=== PATIENT | male | born 1960 | race African-American/Black ===

== ENCOUNTER 2023-03-23 12:03 | Outpatient (CLI) | payer OTHER, SELFPAY ==
--- NOTE | ~2023-03-23 | XR_ITS ---
XR knee RT 3V 03/23/2023 12:18 Indication: Right knee pain Procedure: 3 views right knee Comparison: No prior studies for comparison. Findings: There is mild tricompartment osteoarthritis. No significant joint effusion. No foreign bodi es. No fracture or traumatic malalignment. Impression: 1: Mild osteoarthritis of the right knee. Reviewed, dictated and finalized at location L. Impression: 1: Mild osteoarthritis of the right knee.
== END 2023-03-23 12:04 ==
PROVIDERS: PCP Clinical Nurse Specialist; Visit Provider Clinical Nurse Specialist
DX: M17.11 Unilateral primary osteoarthritis, right knee (principal)
CPT/HCPCS: 73562

== ENCOUNTER 2024-04-24 15:29 | Emergency (ER) | payer OTHER, SELFPAY ==
[2024-04-24 15:36] VITALS: BP 119/82; PULSE 131; RESP 16; TEMP 38.7; O2SAT 98
--- NOTE | 2024-04-24 16:21 | ED.URI ---
HPI - URI/Sore Throat General Chief Complaint: Upper Respiratory Infection Stated Complaint: Chills, Positive COVID Test Time Seen by Provider: 04/24/24 16:12 Source: patient and RN notes reviewed Mode of arrival: ambulatory Limitations: no limitations History of Present Illness HPI Narrative: Patient presents today complaining of chills, headache, runny nose, cough, fatigue. Symptoms began yesterday. Denies fever or shortness of breath. He had tested positive for COVID-19 with a home swab. He has been taking TheraFlu and Robitussin with some relief. He has been vaccinated and 2 start against COVID. Patient works as a special education bus driver and was told he needed to be out for 5 days and that he needs a note. Related Data Home Medications Medication Instructions Recorded Confirmed albuterol sulfate 90 mcg/actuation 1 puff inhalation Q4H PRN 02/06/22 02/10/24 aerosol inhaler hydrochlorothiazide 25 mg tablet 25 mg PO DAILY 02/06/22 02/10/24 apixaban 5 mg tablet (Eliquis) 5 mg PO BID 06/03/23 02/10/24 Allergies Allergy/AdvReac Type Severity Reaction Status Date / Time No Known Allergies Allergy Verified 02/10/24 08:15 Review of Systems Review of Systems: CONSTITUTIONAL: Denies body aches, fever, or sweats. + chills, fatigue EYES: Denies visual changes, redness, or discharge. ENT: Denies congestion, sore throat, or otalgia.+ rhinorrhea CARDIOVASCULAR: Denies chest pain, palpitations, or edema. RESPIRATORY: Denies dyspnea.+ cough GASTROINTESTINAL: Denies abdominal pain, nausea, vomiting, or diarrhea. GENITOURINARY: Denies dysuria or hematuria. SKIN: Denies rash, itching, or wounds. MUSCULOSKELETAL: Denies back pain, joint pain, or myalgia. NEUROLOGIC: Denies numbness, tingling, or weakness.+ headache PSYCH: Denies depression or anxiety. [facility], [facility] Past Medical History Medical History Atrial fibrillation Hypertension Surgical History Surgical History H/O hernia repair (~04/2023) Family History Family History Father Malignant neoplasm of prostate Sibling Malignant neoplasm of prostate Social History Social History Smoking status: Never smoker Alcohol intake: current Substance use: never Lack of Transportation: No Lack of Food: Never True Current Housing: I Have Housing Concerned About Future Housing: No Difficulty Paying Gas/Electric Bills: No Difficulty Paying for Meds: No Currently Unemployed: No Education: High School Diploma/GED Difficulty w/ Childcare or Family Care: No Comments At time of signature, I have reviewed and agree with nursing past medical, surgical, social and family history unless otherwise noted. Please see nursing chart for further information. There is no relevant family history pertinent to the presenting complaint Exam Narrative: GENERAL: Well-appearing, well-nourished, and in no acute distress. HEAD: Normocephalic, atraumatic. EYES: EOMI. No redness or drainage. Conjunctivae normal. ENT: Mucous membranes pink and moist. Nares clear. No rhinorrhea. TMs normal bilaterally. Throat normal. Uvula midline. NECK: Normal AROM. Supple. No lymphadenopathy. CHEST: No respiratory distress. Clear to auscultation. HEART: Regular rate and rhythm. No murmur appreciated. EXTREMITIES: Normal range of motion. No edema. SKIN: Warm, dry, no rash. Capillary refill normal. Normal skin turgor. NEURO: No focal deficits. Alert and oriented x3. Gait steady. PSYCH: Normal affect. No signs of depression or anxiety. Course Course Level of Care: Express Care Visit Vital Signs Vital signs: Vital Signs Temperature 101.7 F H 04/24/24 15:36 Pulse Rate 131 H 04/24/24 15:36 Respiratory Rate 16 04/24/24 15:36 Blood Pre
== END 2024-04-24 16:30 | disposition home or self-care (01) ==
PROVIDERS: Emergency Provider Nurse Practitioner; PCP Clinical Nurse Specialist
DX: U07.1 COVID-19 (principal); I48.91 Unspecified atrial fibrillation; I10 Essential (primary) hypertension
CPT/HCPCS: 99211; G0463